=== PATIENT | female | born 1980 | race Two or more races ===

== ENCOUNTER 2019-06-11 20:30 | Emergency (ER) | payer OTHER ==
[~2019-06-11] VITALS: Ht 165.1 cm; Wt 95.3 kg
[2019-06-11 20:45] VITALS: BP 149/95
[2019-06-11] MEDS ORDERED: cefTRIAXone SOD 1,000 MG VL IM ONE (22:45)
[2019-06-11] MEDS ORDERED: LIDOCAINE 1% HCL (LOCAL ANESTH.) INJ 20ML MDV IJ ONE (22:45)
[2019-06-11] MEDS ORDERED: methylPREDNISolone SOD SUCC 125 MG/2 ML VL IM ONE (22:45)
[2019-06-11] MEDS ORDERED: KETOROLAC TROMETH 60MG/2ML VIAL IM ONE (22:45)
== END 2019-06-12 00:06 | disposition home or self-care (01) ==
LOC: ER 20:33
DX: K04.7 Periapical abscess without sinus (principal); K02.9 Dental caries, unspecified; K03.81 Cracked tooth; F17.210 Nicotine dependence, cigarettes, uncomplicated; F12.10 Cannabis abuse, uncomplicated
CPT/HCPCS: 96372; 99283; J0696; J1885; J2001; J2930

== ENCOUNTER 2019-12-07 20:51 | Emergency (ER) | payer MEDICAID ==
[~2019-12-07] VITALS: Ht 165.1 cm; Wt 99.8 kg
[2019-12-07] MEDS ORDERED: CLINDAMYCIN HCL 150 MG CAP PO ONE (23:15)
[2019-12-07] MEDS ORDERED: KETOROLAC TROMETH 60MG/2ML VIAL IM ONE (23:15)
[2019-12-07 23:49] VITALS: BP 133/86
== END 2019-12-08 00:26 | disposition home or self-care (01) ==
LOC: ER 20:52
DX: K04.7 Periapical abscess without sinus (principal); F17.210 Nicotine dependence, cigarettes, uncomplicated; F12.10 Cannabis abuse, uncomplicated
CPT/HCPCS: 70486; 96372; 99284; J1885